=== PATIENT | female | born 1965 | race African-American/Black ===

== ENCOUNTER 2018-02-22 18:06 | Emergency (ER) | payer OTHER ==
[2018-02-22 18:41] VITALS: BP 132/70; PULSE 68; TEMP 100.5; BMI 29.0
[2018-02-22] MEDS ORDERED: ACETAMINOPHEN 500 MG TABLET (FP) PO ONE (18:51)
[2018-02-22] MEDS ORDERED: BACITRACIN/POLYMYXIN OPH OINT 3.5 GM TUBE OU ONE (18:54)
--- NOTE | 2018-02-22 19:21 | PDOC ---
History of Present Illness <Katie White - Last Filed: 02/22/18 21:55> - General History Source: Patient Exam Limitations: No Limitations - History of Present Illness Initial Comments: 02/22/18 19:08 Patient is a 52F with history of reported stroke and aneurysm 20 years ago with R sided deficit, cocaine abuse (last use this morning), and alcohol abuse (last use two days ago) arriving from [facility] for evaluation of her eyes. Patient reports that her left eye became swollen and had discharge starting 3 days ago. She reports the right eye became swollen/discharge the next day. She endorses cough and shortness of breath. Denies chest pain. She endorses urinary incontinence, denies back pain. Patient states that her right sided weakness has been mildly worse over the past several weeks. Patient endorses an episode of urge incontinence this morning. <Luis Borges - Last Filed: 02/22/18 22:17> - General Chief Complaint: Eye Problem Stated Complaint: PINK EYE Time Seen by Provider: 02/22/18 18:35 Past History <Katie White - Last Filed: 02/22/18 21:55> - Past Medical History Anemia: Yes (NOT IN [place]) Asthma: No Cancer: No Cardiac Disorders: Yes (CVA in 1997) CVA: Yes (STROKE AND BRAIN ANEURYSYM IN 1997) COPD: No CHF: No Dementia: No Diabetes: No GI Disorders: Yes (Gastritis) Disorders: No HTN: No Hypercholesterolemia: No Kidney Stones: No Liver Disease: No Seizures: Yes (last one 1997) Thyroid Disease: No - Surgical History Abdominal Surgery: No Appendectomy: No Cardiac Surgery: No Cholecystectomy: No Lung Surgery: No Neurologic Surgery: Yes (BRAIN SX DUE TO ANEURYSYM IN 1997) Orthopedic Surgery: No - Reproductive History PID: No - Immunization History Immunization Up to Date: Yes - Suicide/Smoking/Psychosocial Hx Smoking History: Never smoked Have you smoked in the past 12 months: Yes Number of Cigarettes Smoked Daily: 6 Information on smoking cessation initiated: No 'Breaking Loose' booklet given: 09/25/13 Hx Alcohol Use: Yes Drug/Substance Use Hx: Yes (CRACK, COCAINE) Substance Use Type: Alcohol, Cocaine Hx Substance Use Treatment: Yes (completed this program in September 2012.) <Luis Borges - Last Filed: 02/22/18 22:17> - Past Medical History Allergies/Adverse Reactions: Allergies Allergy/AdvReac Type Severity Reaction Status Date / Time No Known Drug Allergies Allergy Verified 02/22/18 18:29 NO PORK Allergy Uncoded 02/22/18 18:29 RED SAUCE Allergy Uncoded 02/22/18 18:29 Home Medications: Ambulatory Orders Pantoprazole Sodium [Protonix] 40 mg PO DAILY #0 tablet. 09/24/12 Mirtazapine [Remeron -] 45 mg PO HS #30 tablet 09/22/13 Quetiapine Fumarate [Seroquel -] 200 mg PO HS #30 tablet 09/22/13 Review of Systems - Review of Systems Able to Perform ROS?: Yes Comments:: 02/22/18 19:26 GENERAL/CONSTITUTIONAL: +fever +chills. No weakness. HEAD, EYES, EARS, NOSE AND THROAT: No change in vision. No sore throat. CARDIOVASCULAR: No chest pain +shortness of breath RESPIRATORY: +cough. No wheezing, or hemoptysis. GASTROINTESTINAL: No nausea, vomiting, diarrhea or constipation. GENITOURINARY: No dysuria, frequency, or change in urination. MUSCULOSKELETAL: No joint or muscle swelling or pain. No neck or back pain. SKIN: No rash NEUROLOGIC: +headache. No vertigo, loss of consciousness, or change in strength/ sensation. ENDOCRINE: No increased thirst. No abnormal weight change HEMATOLOGIC/LYMPHATIC: No anemia, easy bleeding, or history of blood clots. ALLERGIC/IMMUNOLOGIC: No hives or skin allergy. <Luis Borges - Last Filed: 02/22/18 22:17> *Physical Exam - Vital Signs Last Vital Signs Temp Pulse Resp BP Pulse Ox 100.5 F H 68 18 132/70 99 02/22/18 18:30 02/22/18 18:30 02/22/18 18:30 02/22/18 18:30 02/22/18 18:30 <Katie White - Last Filed: 02/22/18 21:55> - Vital Signs Last Vital Signs Temp Pulse Resp BP Pulse Ox 100.5 F H 68 18 132/70 99 02/22/18 18:30 02/22/18 18:30 02/22/18 18:30 02/22/18 18:30 02/22/18 18:30 - Physical Exam Comments: 02/22/18 19:29 GENERAL: Awake, alert, and fully oriented, in no acute distress HEAD: No signs of trauma, normocephalic, atraumatic EYES: PERRLA, EOMI, sclera anicteric, conjunctiva injected with pus bilaterally , no pain with eye movement or iris contraction ENT: Auricles normal inspection, hearing grossly normal, nares patent, oropharynx clear without exudates. Moist mucosa. EAC/TM clear NECK: Normal ROM, supple, no lymphadenopathy, JVD, or masses LUNGS: No distress, speaks full sentences, crackles at bases bilaterally L>R HEART: Regular rate and rhythm, normal S1 and S2, no murmurs, rubs or gallops, peripheral pulses normal and equal bilaterally. ABDOMEN: Soft, nontender, normoactive bowel sounds. No guarding, no rebound. No masses EXTREMITIES: Normal inspection, Normal range of motion, no edema. No clubbing or cyanosis. NEUROLOGICAL: Cranial nerves II through XII grossly intact. Normal speech, normal gait, 4/5 strength in R arm/leg SKIN: Warm, Dry, normal turgor, no rashes or lesions noted. <Luis Borges - Last Filed: 02/22/18 22:17> ED Treatment Course - LABORATORY CBC & Chemistry Diagram: 02/22/18 19:10 02/22/18 19:10 - ADDITIONAL ORDERS Additional order review: Laboratory Results 02/22/18 02/22/18 02/22/18 20:25 19:27 19:10 Sodium 144 Potassium 3.5 Chloride 108 H Carbon Dioxide 27 Anion Gap 9 BUN 13 Creatinine 0.9 Creat Clearance w eGFR > 60 Random Glucose 86 Lactic Acid 1.7 Calcium 9.4 Total Bilirubin 1.0 AST 39 H ALT 38 Alkaline Phosphatase 93 Total Protein 7.1 Albumin 4.2 Urine Color Dkyellow Urine Appearance Clear Urine pH 5.0 D Ur Specific [place] 1.026 Urine Protein 2+ H Urine Glucose (UA) Negative Urine Ketones Negative Urine Blood Negative Urine Nitrite Negative Urine Bilirubin Negative Urine Urobilinogen 4.0 e.u/dl H Ur Leukocyte Esterase 1+ H D Urine WBC (Auto) 19 Urine RBC (Auto) 1 Ur Epithelial Cells Rare Urine Mucus Few 02/22/18 19:10 RBC 4.05 MCV 99.1 H MCHC 33.5 RDW 13.8 MPV 9.3 - Medications Given in the ED: ED Medications Discontinued Medications Generic Name Dose Route Start Last Admin Trade Name Shira PRN Reason Stop Dose Admin Acetaminophen 975 mg 02/22/18 18:51 02/22/18 20:34 Tylenol - PO 02/22/18 18:52 975 mg ONCE ONE Administration Bacitracin/Polymyxin B Sulfate 1 applic 02/22/18 18:54 02/22/18 21:33 Polysporin Ophthalmic Ointment - OU 02/22/18 18:55 1 applic NOW ONE Administration <Katie White - Last Filed: 02/22/18 21:55> - LABORATORY CBC & Chemistry Diagram: 02/22/18 19:10 02/22/18 19:10 - RADIOLOGY Radiology Studies Ordered: Category Date Time Status CHEST PA & LAT [RAD] Stat Radiology 02/22/18 18:48 Ordered <Luis Borges - Last Filed: 02/22/18 22:17> Medical Decision Making - Medical Decision Making 02/22/18 19:31 Patient is 52F with history of stroke/aneurysm in 1997 here today complaining cough, eye injection and urinary incontinence. Vital signs notable for 100.5 fever orally. Will give tylenol. No tachycardia. Patient has bilateral conjunctivitis, low concern for gonoccal conjunctivitis. G/C sent. Also concerned for pneumonia and UTI. Will evaluate with CBC, CMP, Lactate, BC, UA/ UC. 02/22/18 21:47 CBC normal. CMP/Lactate normal. UA shows possible infection. Will cover with keflex. Patient given bottle from pharmacy with polymixin/bactrim drops enough for full week course. Pending placement for discharge. <Luis Borges - Last Filed: 02/22/18 22:17> *DC/Admit/Observation/Transfer <Katie White - Last Filed: 02/22/18 21:55> - Discharge Dispostion Decision to Admit order: No <Luis Borges - Last Filed: 02/22/18 22:17> Diagnosis at time of Disposition: Conjunctivitis, bacterial - Discharge Dispostion Disposition: HOME Condition at time of disposition: Good - Patient Instructions Additional Instructions: Please return to the ED if you have any new, worsening or concerning symptoms. Please use the eyedrops four times per day for the next week. Please take keflex 500mg BID for the next 5 days.
[2018-02-22] MEDS ORDERED: ACETAMINOPHEN 325 MG TABLET (FP) ONE (19:36)
[2018-02-22 19:42] LABS: HEMATOCRIT 40.1 % (32.4-45.2); HEMOGLOBIN 13.4 GM/dL (10.7-15.3); MCH 33.2 pg (25.7-33.7); MCHC 33.5 g/dl (32.0-36.0); MEAN CELL VOLUME 99.1 fl (80-96); MEAN PLT VOLUME 9.3 fl (7.5-11.1); PLATELET COUNT 199 K/MM3 (134-434); RBC 4.05 M/mm3 (3.60-5.2); RDW 13.8 % (11.6-15.6)
[2018-02-22 20:03] LABS: ALBUMIN 4.2 g/dl (3.4-5.0); ALK PHOS 93 U/L (45-117); ANION GAP 9 (8-16); BLOOD UREA NITROGEN 13 mg/dL (7-18); CALCIUM 9.4 mg/dL (8.5-10.1); CHLORIDE 108 mmol/L (98-107); CO2 27 mmol/L (21-32); CREATININE 0.9 mg/dL (0.55-1.02); GLUCOSE,RANDOM 86 mg/dL (74-106); POTASSIUM 3.5 mmol/L (3.5-5.1); SGOT/AST 39 U/L (15-37); SGPT/ALT 38 U/L (12-78); SODIUM 144 mmol/L (136-145); TOT PROT 7.1 g/dl (6.4-8.2)
[2018-02-22 20:55] LABS: URINE APPEARANCE CLEAR; URINE BILIRUBIN NEGATIVE (<2.0 mg/dL); URINE COLOR DKYELLOW; URINE GLUCOSE (UA) NEGATIVE (NEGATIVE); URINE KETONE NEGATIVE (NEGATIVE); URINE NITRITE NEGATIVE (NEGATIVE); URINE UROBILINOGEN 4.0 E.U/dl mg/dL (0.2-1.0)
[2018-02-22 20:58] LABS: URINE LEUK ESTERASE 1+ (NEGATIVE); URINE PROTEIN 2+ (NEGATIVE)
[2018-02-22 20:59] LABS: EPI CELLS RARE /HPF (FEW); URINE MUCUS FEW
--- NOTE | 2018-02-22 21:34 | PDOC ---
History of Present Illness - General Chief Complaint: Eye Problem Stated Complaint: PINK EYE Time Seen by Provider: 02/22/18 18:35 History Source: Patient Exam Limitations: No Limitations Past History - Past Medical History Allergies/Adverse Reactions: Allergies Allergy/AdvReac Type Severity Reaction Status Date / Time No Known Drug Allergies Allergy Verified 02/22/18 18:29 NO PORK Allergy Uncoded 02/22/18 18:29 RED SAUCE Allergy Uncoded 02/22/18 18:29 Home Medications: Ambulatory Orders Pantoprazole Sodium [Protonix] 40 mg PO DAILY #0 tablet.dr 09/24/12 Mirtazapine [Remeron -] 45 mg PO HS #30 tablet 09/22/13 Quetiapine Fumarate [Seroquel -] 200 mg PO HS #30 tablet 09/22/13 Anemia: Yes (NOT IN [place]) Asthma: No Cancer: No Cardiac Disorders: Yes (CVA in 1997) CVA: Yes (STROKE AND BRAIN ANEURYSYM IN 1997) COPD: No CHF: No Dementia: No Diabetes: No GI Disorders: Yes (Gastritis) Disorders: No HTN: No Hypercholesterolemia: No Kidney Stones: No Liver Disease: No Seizures: Yes (last one 1997) Thyroid Disease: No - Surgical History Abdominal Surgery: No Appendectomy: No Cardiac Surgery: No Cholecystectomy: No Lung Surgery: No Neurologic Surgery: Yes (BRAIN SX DUE TO ANEURYSYM IN 1997) Orthopedic Surgery: No - Reproductive History PID: No - Immunization History Immunization Up to Date: Yes - Suicide/Smoking/Psychosocial Hx Smoking History: Never smoked Have you smoked in the past 12 months: Yes Number of Cigarettes Smoked Daily: 6 Information on smoking cessation initiated: No 'Breaking Loose' booklet given: 09/25/13 Hx Alcohol Use: Yes Drug/Substance Use Hx: Yes (CRACK, COCAINE) Substance Use Type: Alcohol, Cocaine Hx Substance Use Treatment: Yes (completed this program in September 2012.) *Physical Exam - Vital Signs Last Vital Signs Temp Pulse Resp BP Pulse Ox 100.5 F H 68 18 132/70 99 02/22/18 18:30 02/22/18 18:30 02/22/18 18:30 02/22/18 18:30 02/22/18 18:30 ED Treatment Course - LABORATORY CBC & Chemistry Diagram: 02/22/18 19:10 02/22/18 19:10 - ADDITIONAL ORDERS Additional order review: Laboratory Results 02/22/18 02/22/18 02/22/18 20:25 19:27 19:10 Sodium 144 Potassium 3.5 Chloride 108 H Carbon Dioxide 27 Anion Gap 9 BUN 13 Creatinine 0.9 Creat Clearance w eGFR > 60 Random Glucose 86 Lactic Acid 1.7 Calcium 9.4 Total Bilirubin 1.0 AST 39 H ALT 38 Alkaline Phosphatase 93 Total Protein 7.1 Albumin 4.2 Urine Color Dkyellow Urine Appearance Clear Urine pH 5.0 D Ur Specific [place] 1.026 Urine Protein 2+ H Urine Glucose (UA) Negative Urine Ketones Negative Urine Blood Negative Urine Nitrite Negative Urine Bilirubin Negative Urine Urobilinogen 4.0 e.u/dl H Ur Leukocyte Esterase 1+ H D Urine WBC (Auto) 19 Urine RBC (Auto) 1 Ur Epithelial Cells Rare Urine Mucus Few 02/22/18 19:10 RBC 4.05 MCV 99.1 H MCHC 33.5 RDW 13.8 MPV 9.3 - Medications Given in the ED: ED Medications Discontinued Medications Generic Name Dose Route Start Last Admin Trade Name Shira PRN Reason Stop Dose Admin Acetaminophen 975 mg 02/22/18 18:51 02/22/18 20:34 Tylenol - PO 02/22/18 18:52 975 mg ONCE ONE Administration Medical Decision Making - Medical Decision Making 02/22/18 21:32 52 yo F with h/o cocaine abuse here from [facility] intake for concerns for cough , fever and bilateral eye redness and discharge. pt has been binging for one week. both cocain and alcohol. no urinary complaints, however today was unable to hold urine due to urgency. no n/v no abd pain. no flank pain. on exam bilat eye conj injection. yellow discharge. lungs clear bilaterally heart rrr no mrg. abd soft nt nd. ext wwp no edema. no calf tenderenss. differential conjunctivitis, uti, pneumonia. plan cbc labs ua cxr will treat conjncitivits with abx eye drops. cxr negative for pna. ua negative. given polytrim for opth.
--- NOTE | 2018-02-22 21:35 | PDOC ---
Attending Attestation - Resident Resident Name: Luis Borges - ED Attending Attestation I have performed the following: I have examined & evaluated the patient, The case was reviewed & discussed with the resident, I agree w/resident's findings & plan, Exceptions are as noted - Medical Decision Making 02/22/18 21:35 52 yo F with h/o cocaine abuse here from [facility] intake for concerns for cough , fever and bilateral eye redness and discharge. pt has been binging for one week. both cocain and alcohol. no urinary complaints, however today was unable to hold urine due to urgency. no n/v no abd pain. no flank pain. on exam bilat eye conj injection. yellow discharge. lungs clear bilaterally heart rrr no mrg. abd soft nt nd. ext wwp no edema. no calf tenderenss. differential conjunctivitis, uti, pneumonia. plan cbc labs ua cxr will treat conjncitivits with abx eye drops. cxr negative for pna. ua negative. given polytrim for opth. 02/22/18 21:55 d/w [facility] pt accepted for intake will transfer with security <Katie White - Last Filed: 02/22/18 21:55> - HPI HPI: 02/22/18 21:37 Patient is a 52 year old female with a significant past medical history of Stroke and Aneurysm who presents to the ED with complaints of bilateral eye swelling. Patient reports experiencing left eye swelling that began x3 days ago followed by right eye swelling x2 days ago. She reports experiencing discharge from both eyes with associated non productive coughing, and shortness of breath , prompting her to come into the ED for further evaluation. Patient reports experiencing associated symptoms of urinary incontinence that she states occurred this morning. Denies chest pain, Nausea, vomiting. Denies contact with sick individuals, out of state travelling. Denies constipation, diarrhea. Denies any other symptoms. Allergies: Pork Social history: From [facility]. Current alcohol use (Last x2 days ago). No smoking. Current crack cocaine use (Last this morning). Surgical history: None PMD: None - Physicial Exam PE: 02/22/18 21:37 GENERAL: Awake, alert, and fully oriented, in no acute distress HEAD: No signs of trauma EYES: +Bilateral eye swelling. +Injected conjunctiva with purulent drainage. PERRLA, EOMI, sclera anicteric, ENT: Auricles normal inspection, nares patent, Moist mucosa NECK: Normal ROM, supple, no lymphadenopathy, JVD, or masses LUNGS: Breath sounds equal, clear to auscultation bilaterally. No wheezes, and no crackles HEART: Regular rate and rhythm, normal S1 and S2, no murmurs, rubs or gallops ABDOMEN: Soft, nontender, normoactive bowel sounds. No guarding, no rebound. No masses EXTREMITIES: Normal range of motion, no edema. No clubbing or cyanosis. No cords, erythema, or tenderness NEUROLOGICAL: Normal speech SKIN: Warm, Dry, normal turgor, no rashes or lesions noted. <Mark Hernández - Last Filed: 02/22/18 22:32>
[2018-02-22] MEDS ORDERED: CEPHALEXIN MONOHYDRATE 500 MG CAPSULE (UD) PO ONE (21:37)
[2018-02-22] MEDS ORDERED: CEPHALEXIN MONOHYDRATE 500 MG CAPSULE (UD) ONE (22:16)
== END 2018-02-22 22:33 | disposition home or self-care (01) ==
LOC: JER 18:06
DX: H10.89 Other conjunctivitis (principal)
CPT/HCPCS: 36415; 71046-TC-FY; 80053; 81003; 81015; 83605; 85027; 87040; 87086; 87491; 87591; 99282-25